=== PATIENT | female | born 2000 | race Two or more races ===

== ENCOUNTER 2022-08-08 20:48 | Emergency (ER) | payer MEDICAID, OTHER ==
[~2022-08-08] VITALS: Ht 170.2 cm; Wt 54.0 kg
[2022-08-08 20:48] VITALS: BP 110/50
== END 2022-08-09 00:32 | disposition left against medical advice (07) ==
LOC: ER 20:48
DX: M25.551 Pain in right hip (principal); M25.561 Pain in right knee; Z53.21 Procedure and treatment not carried out due to patient leaving prior to being seen by health care provider
CPT/HCPCS: 73502; 73562; 81025